=== PATIENT | female | born 2005 | race Caucasian/White ===

== ENCOUNTER 2025-07-25 07:04 | Outpatient (REF) | payer BC, SELFPAY ==
--- OUTSIDE RECORDS SUMMARY | 2025-07-25 07:06 | XMS_ITS | Encounter Summary ---
Author Organization [facility] Address [address] [facility] [address] [place] [address] Care Team Providers Care Cashier Manager Name Role Phone Celia Maharaj Md Primary Care Provider [phone] Poc, Not Required Pcp Or Unavailable Unavail able Celia Maharaj Md Unavailable [phone] Encounter Details Date Type Department Care Team (Late st Contact Info) Description 07/05/2025 Email Encounter [facility] Dept Campaign, Provider USED CAMPAIGNS FOR SYSTEM DEFINITIONS NON-PROVIDERS NON-PROVIDERS Get Your Flu Vaccine Now Social History Tobacco Use Types Packs/Day Years Used Date Smoking Tobacco: Never Smokeless Tobacco: Never Alcohol Use Standard Drinks/Week Comments Not Asked 0 (1 standard drink = 0.6 oz pur e alcohol) Hunger Vital Sign Answer Date Recorded Within the past 12 months, y ou worried that your food would run out before you got the money to buy more. Never true 03/04/20 25 Within the past 12 months, t he food you bought just didn't last and you didn't have money to get more. Never true 03/04/2025 PRAPARE - Transportation Answer Date Re corded In the past 12 months, has l ack of transportation kept you from medical appointments or from getting medications? No 02/10 In the past 12 months, has l ack of transportation kept you from meetings, work, or from getting things needed for daily living? No 03/04/2025 Depression Answer Date Recorded Last PHQ-2 1 03/07/2025 Last PHQ-9 1 03/07/2025 Suicidal Ideation/Self Harm Risk 0 - not at all 03/07/2025 Housing Stability Answer Date Recorded What is your housing situation today? Has zaheer gunter 03/04/2025 Are you worried about losing your housing? No 03/04/[address] you li ve. Do you have problem with any of the following? (Choose all that apply) None of the Above Request Assistance Answer Date Recorded Would you like to discuss an y of the needs you identified in this survey with a member of your care team? Not applicable 03/04/2025 Urgent Assistance Needed Not on file 025 Social Isolation Answer Date Recorded How often do you feel lonely or isolated from th ose around you? Rarely 03/04/2025 Family Needs Answer Date Recorded In the past year, have you o r any family members that you live with been unable to get resources (utilities such as power, water, or phone service; clothing; childcare; medicine or other healthcare; employment; etc) when they were really needed? No needs 03/04/2025 Other Needs Not on file 03/04/2025 Safety Answer Date Recorded Do you feel physically and e motionally safe where you currently live? Yes 03/04/2025 Self-Management Confidence Answer Date Recorded How confident are you that y ou can control and manage most of your health problems? Please provide numerical response between 0 -10. 0 = Not at all confident, 10= Completely confident. 8 03/04/2025 Comments No Sex and Gender Information Value Date Recorded Sex Assigned at Female 08/08/2021 12:18 PM EDT Legal Sex Female 4:17 AM EDT Gender Identity Female 08/08/2021 12:18 PM EDT Sexual Orientation Bisexual 08/08/2021 12 :18 PM EDT documented as of this encounter Plan of Treatment Not on file documented as of this encounter Visit Diagnoses Not on filedocumented in this encounter Care Teams Cashier Manager Relationship Specialty Start Date End Date Celia Maharaj MD [address] [place] [address] PCP - General 04/18/08 Poc, Not Required Pcp Or PCP - Payer 05/25/14 Celia Maharaj MD [address] [place] [id number] PCP - BCBS PPO Attributed PCP 04/11/25 documented as of this encounter
--- OUTSIDE RECORDS SUMMARY | 2025-07-25 07:07 | XMS_ITS | Encounter Summary ---
Author Organization [facility] Address [address] [facility] [address] [place] [address] Care Team Providers Care Development Coach Name Role Phone Celia Maharaj Md Primary Care Provider Poc, Not Required Pcp Or Unavailable Unavail able Celia Maharaj Md Unavailable [phone] Reason for Visit * Reason Comments Medication Clarification Encounter Details Date Type Department Care Team (Late st Contact Info) Description 07/17/2017 Telephone [facility] [address] [place] [address] Mitra Faith LPN 0Medication Clarification Social History Tobacco Use Types Packs/Day Years Used Date Smoking Tobacco: Never Smokeless Tobacco: Never Alcohol Use Standard Drinks/Week Comments Not Asked 0 (1 standard drink = 0.6 oz pur e alcohol) Comments No Sex and Gender Information Value Date Recorded Sex Assigned at Female 08/08/2021 12:18 PM EDT Legal Sex Female 4:17 AM EDT Gender Identity Female 08/08/2021 12:18 PM EDT Sexual Orientation Bisexual 08/08/2021 12 :18 PM EDT documented as of this encounter Miscellaneous Notes * Telephone Encounter - Mitra Faith LPN - 07/17/2017 9:23 AM EDT Mom calling; she was unsure of one of the medications pt is taking at the time of PE yesterday. Momcalling with name/dosage of med. Pt currently taking Norethindrone 5MG tabs. Instructions: take one tab daily x3 days, increase doseby 2.5 MG's every two weeks until dose is at 15 MG's. Unsure how to properly add this medication to list documented in this encounter Plan of Treatment Not on file documented as of this encounter Visit Diagnoses Not on filedocumented in this encounter Care Teams Development Coach Relationship Specialty Start Date End Date Celia Maharaj MD [address] [place] [address] PCP - General 04/18/08 Poc, Not Required Pcp Or PCP - Payer 05/25/14 Celia Maharaj MD [address] [place] [address] PCP - BCBS PPO Attributed PCP 04/11/25 documented as of this encounter
--- OUTSIDE RECORDS SUMMARY | 2025-07-25 07:07 | XMS_ITS | Clinical Summary ---
Author Organization [facility] Address [address] [place] [address] [place] [address] Care Team Providers Care Voltage Inspector Name Role Phone Celia Maharaj Md Primary Care Provider [phone] Poc, Not Required Pcp Or Unavailable Unavail able Celia Maharaj Md Unavailable [phone] Allergies Active Allergy Reactions Criticality Noted Date Comments Apple High 06/07/2015 Bromelains Angioedema High 07/24/2017 Throat scratchy and tighter Cetirizine Hcl 07/24/2017 Other reaction(s): Other (See Comments) Tremors, shakiness Pineapple High 06/07/2015 Risperidone 07/24/2017 Other reaction(s): Other (See Comments) Caused increased mamillary glands and is transitioning to male Medications * This document contains information received from the source organization and may not represent a complete record from that organization. DULoxetine (CYMBALTA) 20 mg capsule,delayed release(DR/EC) Take 20 mg by mouth twice daily 0 Active QUEtiapine (SEROQUEL) 100 mg tabletIndications :Anxiety and depression Take 200 mg by mouth daily 120 tablet 0 Active lamoTRIgine 200 mg tablet 1 Active EPINEPHRINE 0.3 MG/0.3 ML (1:1,000) IM PEN INJECTORIndicatio ns:Allergic, initial encounter Use as needed for allergy 1 each 4 1 Active ALBUTEROL SULFATE HFA 90 MCG/ACTUATION AEROSOL INHALERIndication s:Mild intermittent asthma, unspecified whether complicated Inhale 2 puffs as instructed EVERY 4-6 HOURS NEEDED 1 each 0 1 Active QUEtiapine (SEROQUEL) 25 mg tablet 4 Active Active Problems Problem Noted Date Diagnosed Date Mild intermittent asthma 03/07/2025 Medically complex patient 07/22/2018 Anxiety and depression 07/10/2015 Assessment & Plan (03/07/2025 12:25 PM EDT): Stable, followed by Psychiatrist and therapist Taking Cymbalta , lamotrigine and Seroquel Asthma 06/26/2011 Overview (11/09/2023): Images from the original note were not included. Triggers: URis #rescue rx last 12 mo [today's date: November 09, 2023]: 0 Maintenance meds: none noted Last oral steroids: none noted Contact an system support administrator to set this header Asthma/COPD Therapy - Beta 2-Adrenergic Agents, Inhaled, Short Acting Refills Start End ALBUTEROL SULFATE HFA 90 MCG/ACTUATION AEROSOL INHALER 0 08/08/2021 -- Sig: Inhale 2 puffs as instructed EVERY 4-6 HOURS NEEDED ED visits (within the last 3 yrs): none noted Hospitalizations/ICU (lifetime): none noted Last Allergy Visit with FRANKLYN PISANO MD: 12/07/2014 No Pulmonary Medicine visits on file. Specialty visits: none noted Last Asthma Action Plan: 08/07/2021 Last PFT Date is 08/03/2019 Last ACT: 07/25/2019 12:00 AM 07/22/2018 12:00 AM 07/10/2016 9:30 AM Last Asthma Control (ACT) Score Last ACT (result component) 21 22 21 Last Flu shot administered on 06/08/2021 Assessment & Plan (03/07/2025 12:27 PM EDT): Takes albuterol as needed AAP given to Josh Headache 04/29/2011 Assessment & Plan (03/07/2025 12:25 PM EDT): Occasional, taking excedrin and ice to the neck which is helpful Resolved Problems Problem Noted Date Diagnosed Date Resolved Date Severe major depression with psychotic features 02/16/2023 11/16/2023 Metabolic syndrome 02/16/2023 Asperger's syndrome 02/16/2023 11/16/19 24 Secondary amenorrhea 06/12/2022 024 Migraine without aura and wi thout status migrainosus, not intractable 03/15/2020 08/08/2021 [id number]-et-[id number] transgender person 12/22/2016 07/22/2018 Abnormal EEG 06/16/2016 07/22/2018 Overview (06/16/2016): Auditory Hallucinations, seen by Richelle Potter (Dr. Fink/ [facility]) 2015 and started on Keppra 20 mg/kg Repeat EEG in May, was normal but Tatum will remain on Keppra for one year Encounters Date Type Department Care Team Description 07/05/2025 Email Encounter [facility] Dept Campaign, Provider Get Your Flu Vaccine Now from Last 3 Months Immunizations Immunization Administration Dates Next Due COVID-19 (MODERNA) Vaccine, 50mcg/0.25mL, Booster, 18YRS+, IM 10/03/2021 COVID-19 (PFIZER) Vaccine, 1 2YRS+, 30mcg/0.3mL 11/16/2023 COVID-19 (PFIZER) Vaccine, 30mcg/0.3mL, 12YRS+, Diluent Reconstituted, IM 02/15/2021,01/25/2021 DTaP Vaccine 04/06/2007, 4,2003,08/03,2003 HFlu B (Unspecified Formulation) 004,2003,2003,05/29 HPV9 Vaccine (Gardasil9) 07/16/2017,09/03/2016,0 07/10/2016 Hep A Vaccine (Unspecified Formulation) 04/06/2007,04/08/2006 Hep B Vaccine (<11 Years) 01/01/2004,2003, 2003 Influenza H1N1 Vaccine Intranasal 10/19/2009 Influenza Vaccine (Unspecifi ed Formulation) 07/04/2020,06/25/2010 Influenza Vaccine, 6MOS+, 0. 5mL, Multi Dose Vial, Split Virus 07/04/2013 Influenza Vaccine, 6MOS+, Ce ll Cult, Single Dose Syringe, 0.5 mL (FLUCELVAX) 12/30/2024 Influenza Vaccine, 6MOS+, QUADRIVALENT, Single Dose Syringe, 0.5mL (GSK or Sanofi) 06/08/2021 Influenza Vaccine, 6MOS+, Si ngle Dose, 0.5 mL (Flulaval/Fluzone) 11/16/2023,06/08/2021,07/25/2019,07/22 Influenza Vaccine, Cell Cult , Subunit, Antibiotic Free 0.5 mL, >/=4 YRS 07/06/2020 Influenza Vaccine, Intranasal 06/28/2012, 011 Influenza Vaccine, Multi Dos e Vial, 0.5 mL, >/=6 MOS 07/16/2017,07/10/2015 Influenza Vaccine, Quadrival ent Split Virus Preserv Free >/= 36 Mos 07/10/2016 MMR Vaccine 04/06/2007,07/01/2004 Meningococcal ACWY (Menactra ) Conjugate Vaccine 07/25/2019,07/04/2014 Meningococcal Group B (Bexse ro) Conjugate Vaccine 03/07/2025 Pneumococ/Pedi-Conjugate (PCV7) 11/12/19 05,2003,2003,05/29 Polio Vaccine (Inactivated) 04/06/2007,0 01/01/2004,2003,05/29 Rabies Vaccine, IM, Fibrobla st (RabAvert) 11/07/2022,10/31/2022 TdaP 01/11/2025,07/04/2014 Varicella Vaccine 04/06/2007,04/01/2004 Medical History Medical History Date Comments Otitis media tubes at age [age] yo Heartburn Asthma Depression Anxiety Family History Medical History Relation Comments Anxiety Father Asthma Father Hyperlipidemia Father Diabetes - type II Maternal Grandfather Hyperlipidemia Maternal Grandfather Hypertension Maternal Grandfather Psych - depression Maternal Grandfather Anxiety Maternal Grandmother Hypertension Maternal Grandmother Anxiety Mother Asthma Mother Food allergy Mother Headaches/migraine Mother Hearing loss Mother Hypertension Mother Learning disability Mother Psych - depression Mother Hearing loss Paternal Grandfather Other Paternal Grandfather iron overlo ad in his blood, requiring transfusions Psych - depression Paternal Grandmother Learning disability Sister 1 Autism Sister 2 Relation Status Comments Father Alive Maternal Grandfather Alive Maternal Grandmother Alive Mother Paternal Grandfather Alive Paternal Grandmother Sister 1 Sister 2 Social History Tobacco Use Types Packs/Day Years Used Date Smoking Tobacco: Never Smokeless Tobacco: Never Tobacco Cessation:Counseling Given: Not Answered Alcohol Use Standard Drinks/Week Comments Not Asked [...] Orientation Bisexual 08/08/2021 12 :18 PM EDT Obstetrics History Last Filed Vital Signs Vital Sign Reading Time Taken Comments Blood Pressure 108/64 03/07/2025 11:43 AM EDT Pulse 118 02/16/2023 11:44 AM EDT Temperature 36.8 C (98.2 F) 02/16/2023 11:44 AM EDT Respiratory Rate - - Oxygen Saturation 98% 02/16/2023 11:44 AM EDT Inhaled Oxygen Concentration - - Weight 51.9 kg (114 lb 8 oz) 03/07/2025 11:43 AM EDT Height 159.4 cm (5' 2.75 ) 03/07/2025 11:43 AM E DT Body Mass Index 20.44 03/07/2025 11:43 AM EDT Plan of Treatment Health Maintenance Due Date Last Done Comments HEP B INITIAL SCREENING 2021 HEP C SCREENING 2021 HIV SCREENING 2021 PNEUMOCOCCAL VACCINE(S) (1 of 2 - PCV) 2022 11/12/2004, 2003, 2003, Additional history exists PAP: UPDATE W EDIT MODIFIERS 2024 COVID-19 Vaccine ( season) 2025 11/16/2023, 10/03/2021, 02/15/2021, Additional history exists FLU SEASONAL (#1) 06/12/2025 12/30/2024, 11/16/2023, 06/08/2021, Additional history exists MENINGOCOCCAL VACCINE (B) (2 of 2 - Bexsero SCDM 2-dose series) 09/07/2025 03/07/2025 CHLAMYDIA SCREENING FEMALE 16-24 03/07/2026 03/07/2025, 11/16/2023, 08/08/2021, Additional history exists LIPID SCREENING 08/08/2026 08/08/2021 PERIODIC HEALTH REVIEW 03/07/2028 03/07/2025 DTAP/TDAP/TD VACCINE (8 - Td or Tdap) 01/11/2035 01/11/2025, 07/04/2014, 04/06/2007, Additional history exists HEPATITIS B VACCINE Completed 01/01/2004, 2003, 2003 HAEMOPHILUS INFLUENZA VACCINE Completed 07/01/2004, 2003, 2003, Additional history exists HEPATITIS A VACCINE Completed 04/06/2007, POLIO VACCINE Completed 04/06/2007, 12/11, 2003, Additional history exists RUBELLA Completed 04/06/2007, 07/01/2004 HPV VACCINE Completed 07/16/2017, 08/13, 07/10/2016 MENINGOCOCCAL VACCINE (ACWY) Completed 07/25/2019, 07/04/2014 RSV Vaccine Infant//toddler Aged Out No longer eligible based on patient's age to complete this topic Procedures Procedure Name Priority Date/Time Associated Diagnosis Comments CHLAMYDIA URINE DNA Routine 03/07/2025 1 :53 PM EDT Encounter for routine adult health examination without abnormal findings LIPID PROFILE Routine 08/08/2021 5:19 PM EDT Encounter for routine adult health examination without abnormal findings from Last 3 Months or Most Recently Relevant to Health Maintenance Results * CHLAMYDIA URINE DNA (03/07/2025 1:53 PM EDT) CHLAMYDIA PCR Negative Negative 03/07/2025 11:36 PM EDT [facility] DEPARTMENT OF PATHOLOGY AND LAB MEDICINE Comment: Test performed using Aptima Combo2 PCR assay. SOURCE URINE 03/07/2025 11:36 PM EDT [facility] DEPARTMENT OF [facility]OLOGY AND LAB MEDICINE Urine (URINE) Urine / Unknown 03/07/2025 1:53 PM EDT 03/07/2025 1:53 PM EDT Celia Maharaj LAB URINE ORDERABLES Final Re sult [facility] [address] [place] [address] * (ABNORMAL) LIPID PROFILE (08/08/2021 5:19 PM EDT) CHOLESTEROL 190(H) <=169 mg/dL 08/08/2021 9:38 PM EDT [facility] DEPARTMENT OF PATHOLOGY AND LAB MEDICINE HDL 52 >=36 mg/dL 08/08/2021 9:38 PM EDT [facility] DEPARTMENT OF PATHOLOGY AND LAB MEDICINE CHOL/HDL RATIO 3.7 <=4.9 08/08/2021 9:38 PM EDT [facility] DEPARTMENT OF PATHOLOGY AND LAB MEDICINE LDL 111.4 <=130 mg/dL 08/08/2021 9:38 PM EDT [facility] DEPARTMENT OF PATHOLOGY AND LAB MEDICINE TRIGLYCERIDES 133 40 - 136 mg/dL 08/08/2021 9:38 PM EDT [facility] DEPARTMENT OF PATHOLOGY AND LAB MEDICINE FASTING STATUS Random 08/08/2021 9:38 PM EDT [facility] DEPARTMENT OF PATHOLOGY AND LAB MEDICINE Blood (Blood, Venous) Venipuncture / Unknown 08/08/2021 5:19 PM EDT 08/08/2021 5:23 PM EDT Celia Maharaj [facility] LAB Final Result [facility] OF PATHOLOGY AND LAB MEDICINE [address] [place] [address] from Last 3 Months or Most Recently Relevant to Health Maintenance Insurance BCBS-PPO Care Teams Voltage Inspector Relationship Specialty Start Date End Date Celia Maharaj MD [address] [place] [address] PCP - General 04/18/08 Poc, Not Required Pcp Or PCP - Payer 05/25/14 Celia Maharaj MD [address] [place], [place] [id number] PCP - BCBS PPO Attributed PCP 04/11/25
== END 2025-07-25 07:05 | disposition home or self-care (01) ==
LOC: HO.UMASIMG 07:04
PROVIDERS: Visit Provider Nurse Practitioner Women's Health
DX: Z13.89 Encounter for screening for other disorder (principal)

== ENCOUNTER 2025-08-03 09:02 | Outpatient (REF) | payer BC, SELFPAY ==
--- NOTE | ~2025-08-03 | US_ITS ---
EXAMINATION: US PELVIS CLINICAL INFORMATION: Pelvic pain COMPARISON: None available. TECHNIQUE: Transabdominal scanning. FINDINGS: LMP: 3 weeks ago Uterus: The uterus is retroverted and retroflexed . Measures 8 . 4 x 4 by 4.9 cm. No focal uterine lesion. Endometrium is heterogeneous measuring 13 mm in thickness.. . Adnexa Right ovary measures 3.7 x 1.9 x 1.9 cm. Volume 6.7 mL. Ovary appears unremarkable. Left ovary measures 3.7 x 1.7 x 2.3 cm. Volume 7.4 cc. Follicles bilateral ovaries. Vascular flow is seen. Small free fluid in the pelvis.. US/US pelvic complete IMPRESSION: Uterus and bilateral ovaries appear within normal limits. Small free fluid in the pelvis. Electronically signed by: Chadwick Guzman MD 08/03/2025 04:13 PM EDT
--- OUTSIDE RECORDS SUMMARY | 2025-08-03 09:51 | XMS_ITS | Encounter Summary ---
Author Organization [facility] Address [address] [facility] [address] [place] [address] Care Team Providers Care Landing Scaler Name Role Phone Celia Maharaj Md Primary Care Provider [phone] Poc, Not Required Pcp Or Unavailable Unavail able Celia Maharaj Md Unavailable [phone] Reason for Visit * Reason Comments Medication Clarification Encounter Details Date Type Department Care Team (Late st Contact Info) Description 07/17/2017 Telephone [facility] [address] [place] [address] Mitra Faith LPN 0Medication Clarification [...] on filedocumented in this encounter Care Teams Landing Scaler Relationship Specialty Start Date End Date Celia Maharaj MD [address] [place] [address] PCP - General 04/18/08 Poc, Not Required Pcp Or PCP - Payer 05/25/14 Celia Maharaj MD [address] [place] [address] PCP - BCBS PPO Attributed PCP 04/11/25 documented as of this encounter
--- OUTSIDE RECORDS SUMMARY | 2025-08-03 09:51 | XMS_ITS | Encounter Summary ---
Author Organization [facility] Address [address] [facility] [address] [place] [address] Care Team Providers Care Workers' Compensation Mediator Name Role Phone Celia Maharaj Md Primary Care Provider [phone] Poc, Not Required Pcp Or Unavailable Unavail able Celia Maharaj Md Unavailable Encounter Details Date Type Department Care Team [...] on filedocumented in this encounter Care Teams Workers' Compensation Mediator Relationship Specialty Start Date End Date Celia Maharaj MD [address] [place] [address] PCP - General 04/18/08 Poc, Not Required Pcp Or PCP - Payer 05/25/14 Celia Maharaj MD [address] [place] [address] PCP - BCBS PPO Attributed PCP 04/11/25 documented as of this encounter
--- OUTSIDE RECORDS SUMMARY | 2025-08-03 09:51 | XMS_ITS | Clinical Summary ---
Author Organization [facility] Address [address] [place] [address] [place] [address] Care Team Providers Care Regional Hr Manager Name Role Phone Celia Maharaj Md Primary Care Provider [phone] Poc, Not Required Pcp Or Unavailable Unavail able Celia Maharaj Md Unavailable [phone] Allergies Active Allergy Reactions Criticality Noted [...] Last oral steroids: none noted Contact an executive administrator to set this header Asthma/COPD Therapy [...] thout status migrainosus, not intractable 03/15/2020 08/08/2021 [id number] transgender person 12/22/2016 07/22/2018 Abnormal EEG 06/16/2016 07/22/2018 Overview (06/16/2016): Auditory Hallucinations, [place] Richelle Potter [place] [facility] and started on Keppra 20 mg/kg [...] PCR Negative Negative 03/07/2025 11:36 PM EDT [facility] DEPARTMENT OF PATHOLOGY AND LAB MEDICINE Comment: Test performed using Aptima Combo2 PCR assay. SOURCE URINE 03/07/2025 11:36 PM EDT [facility] DEPARTMENT OF PATHOLOGY AND LAB MEDICINE Urine (URINE) Urine / Unknown 03/07/2025 1:53 PM EDT 03/07/2025 1:53 PM EDT Celia Maharaj LAB URINE ORDERABLES Final Re sult [facility] [address] [place] [address] * (ABNORMAL) LIPID PROFILE (08/08/2021 5:19 PM EDT) CHOLESTEROL 190(H) <=169 mg/dL 08/08/2021 9:38 PM EDT [facility] DEPARTMENT OF PATHOLOGY AND LAB MEDICINE HDL 52 >=36 mg/dL 08/08/2021 9:38 PM EDT [facility] DEPARTMENT OF PATHOLOGY AND LAB MEDICINE CHOL/HDL RATIO 3.7 <=4.9 08/08/2021 9:38 PM EDT [facility] DEPARTMENT OF PATHOLOGY AND LAB MEDICINE LDL 111.4 <=130 mg/dL 08/08/2021 9:38 PM EDT [facility] DEPARTMENT OF PATHOLOGY AND LAB MEDICINE TRIGLYCERIDES 133 40 - 136 mg/dL 08/08/2021 9:38 PM EDT [facility] DEPARTMENT OF PATHOLOGY AND LAB MEDICINE FASTING STATUS Random 08/08/2021 9:38 PM EDT [facility] DEPARTMENT OF PATHOLOGY AND LAB MEDICINE Blood (Blood, Venous) Venipuncture / Unknown 08/08/2021 5:19 PM EDT 08/08/2021 5:[address] [facility] LAB Final Result [facility] OF PATHOLOGY AND LAB MEDICINE [address] [place] [address] from Last 3 Months or Most Recently Relevant to Health Maintenance Insurance BCBS-PPO Care Teams Regional Hr Manager Relationship Specialty Start Date End Date Celia Maharaj MD [address] [place] [address] PCP - General 04/18/08 Poc, Not Required Pcp Or PCP - Payer 05/25/14 Celia Maharaj MD [address] [place], [place] [phone] PCP - BCBS PPO Attributed PCP 04/11/25
== END 2025-08-03 09:03 | disposition home or self-care (01) ==
LOC: HO.UMASIMG 09:02
PROVIDERS: Visit Provider Nurse Practitioner Women's Health
DX: R10.20 Pelvic and perineal pain unspecified side (principal)
CPT/HCPCS: 76856